=== PATIENT | female | born 1970 | race Caucasian/White ===

== ENCOUNTER 2020-09-29 19:45 | Emergency (ER) | payer SELFPAY ==
[2020-09-29 20:02] VITALS: BP 133/89; PULSE 78; RESP 18; TEMP 36.8; O2SAT 99; BMI 23.0
--- NOTE | 2020-09-29 20:09 | CTR_ITS ---
PROCEDURE INFORMATION: Exam: CT Abdomen And Pelvis With Contrast Exam date and time: 09/29/2020 8:32 PM Age: 50 years old Clinical indication: Abdominal pain; Localized; Right lower quadrant (rlq); Patient HX: C/O rlq pain w n/v TECHNIQUE: Imaging protocol: Computed tomography of the abdomen and pelvis with intravenous contrast. Radiation optimization: All CT scans at this facility use at least one of these dose optimization techniques: automated exposure control; mA and/or kV adjustment per patient size (includes targeted exams where dose is matched to clinical indication); or iterative reconstruction. Contrast material: OMNI 300; Contrast volume: 95 ml; Contrast route: INTRAVENOUS (IV); COMPARISON: CT Abdomen/Pelvis Renal 14144 11/09/2014 10:36 PM RADIATION DOSE METRICS: Total DLP (mGy-cm): 548.52 FINDINGS: Liver: Multiple hepatic cysts at least one of which measures larger than 1.0 cm in size. Other low-attenuation lesions in the liver are too small to characterize. Gallbladder and bile ducts: Normal. No calcified stones. No ductal dilation. Pancreas: Normal. No ductal dilation. Spleen: Normal. No splenomegaly. Adrenal glands: Normal. No mass. Kidneys and ureters: Multiple right renal simple cysts with the largest measuring > 1.0 cm . Stomach and bowel: Unremarkable. No obstruction. No mucosal thickening. Appendix: Normal appendix. Intraperitoneal space: Unremarkable. No free air. No significant fluid collection. Vasculature: Calcification of the abdominal aorta and/or iliac arteries consistent with atherosclerotic vessel disease. One or more calcified pelvic phleboliths. Lymph nodes: Unremarkable. No enlarged lymph nodes. Urinary bladder: Unremarkable as visualized. Reproductive: Interval appearance of 6.8 cm left ovarian cyst behind the left uterus which could represent simple cyst. Correlation with ultrasound is recommended. Interval enlargement of 11.3 x 9.2 x 7.9 cm right ovarian cystic lesion which previously measured 8.7 x 8.7 x 7.8 cm. Possible ovarian neoplasm. Bones/joints: Unremarkable. No acute fracture. Soft tissues: Unremarkable. CT/CT abdomen pelvis w con* [id number] IMPRESSION: 1. Normal appendix. 2. Interval appearance of 6.8 cm left ovarian cyst behind the left uterus which could represent simple cyst. Correlation with ultrasound is recommended. 3. Interval enlargement of 11.3 x 9.2 x 7.9 cm right ovarian cystic lesion which previously measured 8.7 x 8.7 x 7.8 cm. Possible ovarian neoplasm. COMMENTS: Consistent with the [employer]'s Incidental Findings Committee white paper (J Am Sarah Radiol 2018): Any incidental renal lesion less than 1 cm or classified as too small to characterize, or any incidental cystic renal lesion characterized as simple-appearing, is likely benign. No follow-up imaging is recommended for these lesions per consensus recommendations based on imaging criteria. Radiation Dose CTDIVOL = (mGy): DLP = 548.52 (mGy-cm)
--- NOTE | 2020-09-29 20:11 | ED_ITS ---
HPI - Abdominal Pain General: Chief Complaint: Abdominal Pain Stated Complaint: lower abdominal/suspects appendix Time Seen by Provider: 09/29/20 20:09 Source: patient Mode of arrival: ambulatory Limitations: no limitations History of Present Illness: HPI narrative: 50-year-old female comes in with right lower quadrant pain radiating into the right flank starting about 3 hours ago. Patient reports nausea and vomiting with it. Patient does have a history of renal stone. Patient appears mildly unwell. Patient appears in moderate to severe pain. Patient reports some chills. Patient denies any fever. Associated Symptoms: Reports nausea and vomiting Review of Systems General: Reports: 10 or more systems reviewed and unremarkable except in HPI and below GI: Reports: abdominal pain, nausea and vomiting Physical Exam Const: COMMON NORMALS: no acute distress and patient oriented x3 GENERAL APPEARANCE: cooperative HENMT: COMMON NORMALS: normocephalic and Normal external nose present HEAD & SCALP: normal to inspection and normocephalic NOSE: Normal external nose present MOUTH: Normal oral and palatal mucosa present Eye: GENERAL EYE: appearance normal, both eyes and all related structures Neck/C-Spine: COMMON NORMALS: full ROM Lymph: LYMPHATIC: no lymphadenopathy noted Chest: COMMONS NORMALS: normal inspection of the chest Resp: COMMON NORMALS: normal respiratory effort EFFORT & INSPECTION: Yes able to speak in complete sentences Cardio: COMMON NORMALS: regular rate and regular rhythm RATE: regular rate RHYTHM: regular rhythm GI: COMMON NORMALS: Soft to palpation AUSCULTATION: Yes normoactive bowel sounds PALPATION: Yes Soft to palpation and Yes Tenderness to palpation present (GI) Details: RLQ : BLADDER/KIDNEY EXAM: Yes CVA tenderness on the right Back/Pelvis: COMMON NORMALS: thoracic and lumbar spine normal to inspection Extremity: COMMON NORMALS: normal to inspection Neuro: COMMON NORMALS: patient oriented x3 and moves all extremities Psych: COMMON NORMALS: mental status grossly normal and cooperative Skin: COMMON NORMALS: no rashes or lesions noted GENERAL SKIN EXAM: no rashes or lesions noted Course Vital Signs: Vital signs: Vital Signs Temperature 98.2 F 09/29/20 20:02 Pulse Rate 72 09/29/20 21:02 Respiratory Rate 18 09/29/20 21:02 Blood Pressure 133/89 09/29/20 20:02 Pulse Oximetry 96 09/29/20 21:02 MDM - Abdominal Pain MDM Narrative: Medical decision making narrative: Patient comes in with right lower abdominal pain and discomfort. Patient was concerned that the may be having appendicitis. Patient has had a previous history of renal stone. On exam patient had some right CVA tenderness. Abdomen was tenderness to the right side. Vital signs were normal. Differential diagnosis includes appendicitis, renal calculi, ovarian cyst, colitis. CT scan noted no appendicitis. CT scan did note an abnormal ovarian cyst on the right side that has grown since 2014. I reviewed this with patient with recommendations for follow-up with [facility]. Patient reported understanding Case management was consulted for assistance with referral. Urinalysis showed blood and white blood cells will treat for urinary tract infection. Patient was encouraged drink plenty of water and fluids and r eturn to ER as needed. Lab Data: Labs: Lab Results 09/29/20 09/29/20 09/29/20 Range/Units 20:25 20:33 20:33 WBC 10.2 H (4.0-10.0) 10^3/ uL RBC 4.65 (4.1-5.3) 10^6/u L Hgb 14.4 (11.5-15.3) g/dL Hct 42.3 (37.0-47.0) % MCV 91.0 (81-99) fL MCH 31.0 (28.0-34.0) pg MCHC 34.0 (30.0-36.0) g/dL RDW 12.8 (12.1-15.1) % Plt Count 245 (130-400) 10^3/c mm MPV 10.3 (7.4-10.4) fL Neut % (Auto) 87.5 % Lymph % (Auto) 10.1 % [place] % (Auto) 1.6 % Eos % (Auto) 0.0 % Baso % (Auto) 0.5 % Neut # (Auto) 8.97 H (1.8-7.7) 10^3/u L Lymph # (Auto) 1.0 (0.8-4.8) 10^3/u L [place] # (Auto) 0.2 (0.2-0.9) 10^3/u L Eos # (Auto) 0.0 (0.0-0.8) 10^3/u L Baso # (Auto) 0.1 (0.0-0.1) 10^3/u L Nucleated RBC % (a uto) 0 % Nucleated RBCs # 0.0 /100WBC Sodium 135 L (136-145) mmol/L Potassium 4.2 (3.5-5.1) mmol/L Chloride 99 (98-107) mmol/L Carbon Dioxide 23 (22-29) mmol/L Anion Gap 17.2 (5-19) BUN 11 (6-20) mg/dL Creatinine 0.9 (0.5-0.9) mg/dL GFR Calculation 65.8 L (90-130) mL/min Glucose 151 H (65-115) mg/dL Calculated Osmolal ity 282 L (285-295) mOsm/k g Calcium 9.6 (8.5-10.5) mg/dL Total Bilirubin 0.5 (0.15-1.2) mg/dL AST 16 (0-32) U/L ALT 13 (0-33) U/L Alkaline Phosphata se 83 (35-105) IU/L Total Protein 7.3 (6.6-8.7) g/dL Albumin 4.6 (3.5-5.2) g/dL Globulin 2.7 (1.3-4.6) g/dL Lipase 19 (13-60) U/L HCG, Qual (Negative) Urine Color Yellow (Yellow) Urine Appearance Clear (CLEAR) Urine pH 7 (5-7) Ur Specific Gravit y 1.010 (1.005-1.030) Urine Protein Neg (Negative) Urine Glucose (UA) Norm (Normal) Urine Ketones 1+ H (Negative) Urine Blood 2+ H (Negative) Urine Nitrate Negative (Negative) Urine Bilirubin Neg (Negative) Urine Urobilinogen Norm (Negative) mg/dL Ur Leukocyte Nettie ase Negative (Negative) Urine RBC 15-25 H (0-2) /hpf Urine WBC 5-10 H (0-5) /hpf Ur Squamous Epith Cells 5-10 H (0-5) /hpf Amorphous Sediment Not Reportable Urine Bacteria Trace (NONE) /hpf Urine Mucus 4+ /hpf 11/14/20 Range/Units 20:33 WBC (4.0-10.0) 10^3/ uL RBC (4.1-5.3) 10^6/u L Hgb (11.5-15.3) g/dL Hct (37.0-47.0) % MCV (81-99) fL MCH (28.0-34.0) pg MCHC (30.0-36.0) g/dL RDW (12.1-15.1) % Plt Count (130-400) 10^3/c mm MPV (7.4-10.4) fL Neut % (Auto) % Lymph % (Auto) % [place] % (Auto) % Eos % (Auto) % Baso % (Auto) % Neut # (Auto) (1.8-7.7) 10^3/u L Lymph # (Auto) (0.8-4.8) 10^3/u L [place] # (Auto) (0.2-0.9) 10^3/u L Eos # (Auto) (0.0-0.8) 10^3/u L Baso # (Auto) (0.0-0.1) 10^3/u L Nucleated RBC % (a uto) % Nucleated RBCs # /100WBC Sodium (136-145) mmol/L Potassium (3.5-5.1) mmol/L Chloride (98-107) mmol/L Carbon Dioxide (22-29) mmol/L Anion Gap (5-19) BUN (6-20) mg/dL Creatinine (0.5-0.9) mg/dL GFR Calculation (90-130) mL/min Glucose (65-115) mg/dL Calculated Osmolal ity (285-295) mOsm/k g Calcium (8.5-10.5) mg/dL Total Bilirubin (0.15-1.2) mg/dL AST (0-32) U/L ALT (0-33) U/L Alkaline Phosphata se (35-105) IU/L Total Protein (6.6-8.7) g/dL Albumin (3.5-5.2) g/dL Globulin (1.3-4.6) g/dL Lipase (13-60) U/L HCG, Qual Negative (Negative) Urine Color (Yellow) Urine Appearance (CLEAR) Urine pH (5-7) Ur Specific Gravit y (1.005-1.030) Urine Protein (Negative) Urine Glucose (UA) (Normal) Urine Ketones (Negative) Urine Blood (Negative) Urine Nitrate (Negative) Urine Bilirubin (Negative) Urine Urobilinogen (Negative) mg/dL Ur Leukocyte Nettie ase (Negative) Urine RBC (0-2) /hpf Urine WBC (0-5) /hpf Ur Squamous Epith Cells (0-5) /hpf Amorphous Sediment Urine Bacteria (NONE) /hpf Urine Mucus /hpf Discharge Plan Discharge Patient Disposition: Home Clinical Impression: UTI (urinary tract infection) due to Enterococcus, Abnormal CT scan, pelvis Condition: Stable Prescriptions: New Bactrim DS 800-160 mg tablet 1 tab PO BID Qty: 7 RF: 0 phenazopyridine 100 mg tablet 100 mg PO Q8H Qty: 6 RF: 0 Discharge Orders: Discharge Order (Routine); Ordered 09/29/20 Ordered By: Brandon Ramírez Referrals: Mendez Bennett FNP [Primary Care Provider] - Discharge Diet: Usual diet Discharge Activity: Increase activity as tolerated Patient Instructions: Abdominal Pain (ED) Activity Restrictions/Additional Instructions: Follow-up with primary care. Follow-up with [facility] for further evaluation of abnormal CT scan. The CT scan may indicate a cancer on the right ovary. It is important to have this further evaluated to rule cancer out. Return to the emergency department for worsening pain, high fever, or new concerns. Case management has been consulted to help assist with [facility] follow-up. Coding Level of Care Code ED Oral And Maxillofacial Surgery for Chidi Duong Exam Comprehensive
[2020-09-29 20:41] LABS: Basophils # 0.1 10^3/uL (0.0-0.1); Basophils % 0.5 %; Hematocrit 42.3 % (37.0-47.0); Hemoglobin 14.4 g/dL (11.5-15.3); Lymphocytes % 10.1 %; Mean Platelet Volume 10.3 fL (7.4-10.4); Monocytes # 0.2 10^3/uL (0.2-0.9); Monocytes % 1.6 %; Neutrophils # 8.97 10^3/uL (1.8-7.7); Neutrophils % 87.5 %; Nucleated Red Blood Cells % 0 %; Platelet Count 245 10^3/cmm (130-400); Red Blood Count 4.65 10^6/uL (4.1-5.3); Red Cell Distribution Width 12.8 % (12.1-15.1); White Blood Count 10.2 10^3/uL (4.0-10.0)
[2020-09-29] MEDS: sodium chloride 0.9% 500 ML 999 ML IV (20:44)
[2020-09-29] MEDS: ondansetron 2 mg/ML SDV 2 mL 4 MG IVP (20:44)
[2020-09-29] MEDS: ketorolac 30 mg/mL INJ 15 MG IVP (20:45)
[2020-09-29 20:46] VITALS: RESP 18; O2SAT 99
[2020-09-29] MEDS: fentaNYL 50 mcg/mL INJ 2mL 25 MCG IVP (20:46)
[2020-09-29] MEDS: iohexol 300 mg/mL 100 mL Btl IV (20:52)
[2020-09-29 20:57] LABS: HCG, Serum Qual Negative (Negative)
[2020-09-29 20:58] LABS: Urine Appearance Clear (CLEAR); Urine Color Yellow (Yellow); pH Urine 7 (5-7)
[2020-09-29 20:59] LABS: Add Urine Microscopic? YES; Bilirubin Urine Neg (Negative); Blood Urine 2+ (Negative); Glucose Urine UA Norm (Normal); Ketones Urine 1+ (Negative); Leukocyte Esterase Urine Negative (Negative); Nitrate Urine Negative (Negative); Protein Urine Neg (Negative); Urobilinogen Urine Norm (Negative)
[2020-09-29 21:02] VITALS: PULSE 72; RESP 18; O2SAT 96
[2020-09-29 21:02] LABS: Alanine Aminotransferase 13 U/L (0-33); Albumin Level 4.6 g/dL (3.5-5.2); Alkaline Phosphatase 83 IU/L (35-105); Blood Urea Nitrogen 11 mg/dL (6-20); Calcium 9.6 mg/dL (8.5-10.5); Carbon Dioxide 23 mmol/L (22-29); Chloride 99 mmol/L (98-107); Globulin 2.7 g/dL (1.3-4.6); Glomerular Filtration Rate 65.8 mL/min (90-130); Glucose 151 mg/dL (65-115); Lipase 19 U/L (13-60); Osmolality Calculated 282 mOsm/kg (285-295); Sodium 135 mmol/L (136-145); Total Bilirubin 0.5 mg/dL (0.15-1.2); Total Protein 7.3 g/dL (6.6-8.7)
[2020-09-29 21:04] LABS: Add Urine Culture? Yes; Bacteria Urine TRACE /hpf; RBC Urine 15-25 /hpf (0-2)
[2020-09-29 21:08] LABS: Mucus Urine 4+ /hpf
[2020-09-29 21:11] LABS: Anion Gap 17.2 (5-19); Aspartate Amino Transferase 16 U/L (0-32); Potassium 4.2 mmol/L (3.5-5.1)
[2020-09-29] MEDS: sulfamethoxazole-trimeth DS 160-800 mg Tablet 1 TAB PO (21:38)
[2020-09-29 21:42] VITALS: PULSE 88; RESP 18; O2SAT 99
--- NOTE | 2020-10-01 11:30 | DCPLANNER ---
ag service manager had message to schedule a follow up appointment for patient with [facility]. ag service manager called [facility], spoke with [place], gave clinic patients information. ag service manager was told that patients information would be printed and reviewed. Clinic will call patient with appointment information.
--- NOTE | 2020-10-03 13:17 | DCPLANNER ---
Patient has a follow up appointment scheduled for Monday, October 19, 2020 at 1:[address] Delgado. Clinic will call patient with appointment information.
--- NOTE | 2020-10-26 15:06 | DCPLANNER ---
Patient had a follow up appointment scheduled for 10.19.20 with [facility] - patient did attend appointment.
== END 2020-09-29 21:43 | disposition home or self-care (01) ==
PROVIDERS: Emergency Provider Nurse Practitioner Family; PCP Nurse Practitioner
DX: N39.0 Urinary tract infection, site not specified (principal); B95.2 Enterococcus as the cause of diseases classified elsewhere; R93.5 Abnormal findings on diagnostic imaging of other abdominal regions, including retroperitoneum
CPT/HCPCS: 12345; 74177; 80053; 81001; 83690; 84703; 85025; 87086; 96374; 96375; 99283; J1885; J2405; J3010; J7040; Q9967

== ENCOUNTER → 2020-10-08 10:37 | Outpatient (BNVA) | payer SELFPAY | PROVIDERS: PCP Nurse Practitioner; Visit Provider Obstetrics & Gynecology | DX: N83.201 Unspecified ovarian cyst, right side (principal) | CPT/HCPCS: 76856 ==

== ENCOUNTER → 2020-11-22 11:00 | Outpatient (BNVA) | payer MEDICAID, SELFPAY | PROVIDERS: PCP Nurse Practitioner; Visit Provider Obstetrics & Gynecology | DX: Z12.4 Encounter for screening for malignant neoplasm of cervix (principal) | CPT/HCPCS: 88175 ==

== ENCOUNTER → 2020-11-28 10:35 | Outpatient (BNVA) | payer MEDICAID, SELFPAY | PROVIDERS: Visit Provider Obstetrics & Gynecology | DX: Z01.812 Encounter for preprocedural laboratory examination (principal); Z20.828 Contact with and (suspected) exposure to other viral communicable diseases | CPT/HCPCS: 85025; 87635 ==

== ENCOUNTER 2020-12-04 07:47 | Day surgery (SDC) | payer MEDICAID, SELFPAY ==
[2020-11-28 09:36] VITALS: BMI 26.2
[2020-11-28 10:11] LABS: Basophils # 0.1 10^3/uL (0.0-0.1); Basophils % 0.9 %; Eosinophils # 0.1 10^3/uL (0.0-0.8); Eosinophils % 1.3 %; Hematocrit 42.4 % (37.0-47.0); Hemoglobin 14.1 g/dL (11.5-15.3); Lymphocytes # 1.8 10^3/uL (0.8-4.8); Lymphocytes % 33.1 %; Mean Corpuscular HGB Conc 33.3 g/dL (30.0-36.0); Mean Corpuscular Hemoglobin 30.9 pg (28.0-34.0); Mean Platelet Volume 10.1 fL (7.4-10.4); Monocytes # 0.3 10^3/uL (0.2-0.9); Monocytes % 6.3 %; Neutrophils # 3.11 10^3/uL (1.8-7.7); Nucleated Red Blood Cells % 0 %; Platelet Count 243 10^3/cmm (130-400); Red Blood Count 4.56 10^6/uL (4.1-5.3); Red Cell Distribution Width 13.3 % (12.1-15.1); White Blood Count 5.4 10^3/uL (4.0-10.0)
--- NOTE | 2020-11-28 12:03 | ANES.PREANE2 ---
Pre-Anesthetic Assessment Pre-Anesthetic Assessment: Height/Weight: Height 1.6 m Weight 67.132 kg Preop Diagnosis: Ovarian cyst, Vulvar mass Proposed Procedure: Operation Date: 12/04/20 08:30 Proposed Procedures p Laparoscopic Salpingo Oophorectomy, poss laparotomy 97991 [id number] N83.201(Not Applicable) - Oscar Delgado MD s Excision of labial mass(Not Applicable) - Oscar Delgado MD Was Beta Suzanne taken within 24 hours: N/A Social: Social History: Tobacco and No alcohol Exam: Pre-Anes Outpt Exam: alert, oriented x 3 and regular rate & rhythm Additional Exam Findings (including area of procedure): Rhonchi Airway: Submandibular: WNL Cervical ROM: WNL MP: 2 Dentition: Full Pulmonary: Pulmonary: COPD CV/HEM: CV/HEM: None reported : : None reported Hepatic: Hepatic: None reported GI: GI: None reported Metabolic: Metabolic: None reported Musc/skel: Musc/skel: None reported Neuropsych: Neuropsych: None reported Anesthetic Plan: ASA status: 2 Anesthesia: General Risk of > 500 ml blood loss (7ml/kg in children): No PFSH Anesthesia PFSH: Medical History Kidney stones (~2013) Passed on own. Surgical History S/P dilation and curettage (~1997) Family History Father Diabetes Stroke Myocardial infarction Social History (Updated 11/24/20 @ 16:10 by Oscar Delgado MD) Smoking and tobacco status: current every day smoker cigarettes Packs smoked per day: 1 [ Other cigarette details: Started age 13 ] Alcohol intake: current Alcohol intake frequency: holidays/special occasions only Substance/Drug Use: never Data Anesthesia CBC & Chem 7: 11/28/20 09:45 Other Labs: Laboratory Results - last 48 hr 11/28/20 09:45 WBC 5.4 RBC 4.56 Hgb 14.1 Hct 42.4 MCV 93.0 MCH 30.9 MCHC 33.3 RDW 13.3 Plt Count 243 MPV 10.1 Neut % (Auto) 58.0 Lymph % (Auto) 33.1 [place] % (Auto) 6.3 Eos % (Auto) 1.3 Baso % (Auto) 0.9 Neut # (Auto) 3.11 Lymph # (Auto) 1.8 [place] # (Auto) 0.3 Eos # (Auto) 0.1 Baso # (Auto) 0.1 Nucleated RBC % (auto) 0 Nucleated RBCs # 0.0 Cardiac Studies: No Data to Display
[2020-12-04] VITALS (10 sets, daily range): BP systolic 96–152; BP diastolic 68–95; PULSE 59–94; RESP 12–18; TEMP 36.6–36.8; O2SAT 97–100
[2020-12-04] MEDS: sodium chloride 0.9% 1,000 ML 30 ML IV (08:43)
[2020-12-04] MEDS: gabapentin 300 mg Capsule PO (08:54)
[2020-12-04] MEDS: ketorolac 30 mg/mL INJ IVP (08:59)
--- NOTE | 2020-12-04 10:33 | W.PM.OPSUD ---
Surgery/Procedure H&P Update DATE OF PROCEDURE: December 04, 2020 DATE H&P PERFORMED: 11/22/20 H&P UPDATE INFORMATION: I have reviewed H&P completed within last 30 days, I have examined patient prior to procedure, No changes to prior documentation and H&P is in [facility] on date indicated PREOP DIAGNOSIS: Ovarian cyst, Vulvar mass PLANNED PROCEDURE: Operation Date: 12/04/20 09:25 Proposed Procedures p Laparoscopic Salpingo Oophorectomy, poss laparotomy 19507 [id number] N83.201(Not Applicable) - Oscar Delgado MD s Excision of labial mass(Not Applicable) - Oscar Delgado MD
[2020-12-04] MEDS: neomycin-poly-bacitracin oint 28 gm 1 APPLIC TOPICAL (12:16)
--- NOTE | 2020-12-04 13:03 | PM.OP ---
Operative Report Date of procedure: December 04, 2020 Pre-op Diagnosis: Ovarian cyst, Vulvar mass Post-op Diagnosis: Bilateral ovarian neoplasms, Vulvar mass Procedure Done: Laparoscopic bilateral salpingo-oophorectomy, Excision of of right labial mass (4 x 3.5 cm) with intermediate closure of the defect. Specimens removed/disposition: Bilateral tubes and ovaries, Right labial mass Surgeon: Oscar Delgado Hydrotel Operator: None Anesthesia: General Estimated blood loss (mL): 20 IV fluids (mL): 1,000 Urine output (mL): 100 Complications: None Findings: Large bilateral ovarian cyst (right ovary was approximately 440 mL volume and left ovary was approximately 146 mL volume). Small uterus. Right labial mass, warty appearing, measuring 4.0 x 3.5 cm. Brief History: Patient is a 50-year-old female 7, para 7 who is postmenopausal. She presented to the office as a referral from the ER due to bilateral ovarian cyst. While being evaluated in the ER for right lower quadrant pain, she was found to have 2 large cysts. On further review of records these have been present since 2013, but had slowly enlarged. The right ovarian cyst was measuring 11.1 x 11.8 x 6.7 cm and the left ovarian cyst was measuring 6.7 x 6.4 x 6.9 cm. These were both simple in appearance. 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 Recommendations, however, were for them to be removed and she is presenting for that. In addition, she reported that she had a large labial mass that have been slowly enlarging over several years. On evaluation this appeared to be a very large wart which was approximately 4 cm in diameter. Removal of this was also discussed and she is presenting for both of these procedures at this time. Procedure: The patient was taken to the operating room where general anesthesia was obtained. She was prepped and draped in the usual sterile fashion in the dorsal supine position with legs in Gal style stirrups. Sequential compression boots were placed prior to starting the case. Bladder was drained and exam under anesthesia was performed. She was found to have first to second-degree uterine prolapse. Weighted speculum was placed in the vagina and the cervix. Attempted to pass a ZUMI, which was unsuccessful. As a result I attempted to dilate the cervix and was unable to pass any the dilators beyond approximately 4 cm in length. As a result decision was made not to place the ZUMI. A sponge stick was left in the vagina and secured to the tenaculum. The infraumbilical region was injected with 2% lidocaine with epinephrine. Skin incision was made with a knife in the lower edge of the navel and a size 10 trocar and sheath were inserted under direct visualization using an Optiview type technique. Trocar was removed and replaced with just the laparoscope confirming intra-abdominal placement. The anterior abdominal wall was inspected and noted to be free of adhesions. In the right and left lower quadrants lateral to the inferior epigastric vessels, the skin was injected with 2% lidocaine with epinephrine. Skin incision was made with the knife and a 5 mm trocar and sheath were inserted under direct visualization at each site. On inspection of the pelvis, a large cystic mass was found to be sitting in the midportion of the pelvis anterior to the uterus. This was found to be arising from the right adnexal region. The rest of the pelvic organs were not able to be visualized due to the size of the mass. The right infundibulopelvic ligament was able to be visualized. Using the Voyant sealing device, the infundibulopelvic ligament was sealed and cut and the dissection carried along the lateral aspect of the ovary and tube until the corner of the uterus was reached. This pedicle was also then cut completely freeing the ovary and tube from the uterus and the sidewall. The ovary was too large to put into a pouch and as a result the fluid from the cyst was aspirated using an aspiration needle. Approximately 440 mL of fluid was drained from the ovary. The ovary was then placed in the laparoscopic pouch and brought out through the abdominal wall. The rest the pelvis was unable to be visualized. Patient was noted to have a very small slightly retroflexed uterus. Posterior to the uterus, patient had an enlarged cystic left ovary noted. Using the Voyant sealing device, the infundibulopelvic ligament was sealed and cut and the dissection carried along the mesovarium mesosalpinx until the ovary and tube were completely freed. The ovary was placed in a laparoscopic pouch and then drained using aspiration needle. It was then brought out through the laparoscopic site. The dissection areas were inspected and noted to be hemostatic. The abdomen was deflated and the ports removed. The fascia at the umbilical incision was closed using 0 Vicryl suture in an interrupted fashion. The skin was reapproximated using 4-0 Vicryl suture in a subcuticular fashion. The 5 mm sites were closed with single stitches of 4-0 Vicryl suture. Skin glue was applied. The skin of the right labia was injected with 2% lidocaine with epinephrine under the mass and extending above and below this. An elliptical incision was made with a knife in the labia through the full-thickness of the skin. This was then excised using a knife until the mass with the full-thickness of the skin was removed. Areas of bleeding were cauterized with electrocautery. The skin was loose enough in the area that it was felt that no skin flaps would be required for primary closure. To reapproximate the defect, 2 separate layers of interrupted stitching using 2-0 Vicryl suture were placed in the subcutaneous tissue to reduce the width of the defect. Once this was completed, skin edges reapproximated well and as a result was closed with 4-0 Vicryl suture in a simple running fashion. This allowed tension-free closure of the defect. The overall length of the excised area was 8 cm with the overallwidth being 4-1/2 cm. Triple antibiotic was applied to the labial incision. Patient tolerated the procedures well. Sponge and needle counts were correct. DRAINS: None POSTOPERATIVE STATUS: The patient was transferred to the recovery room in satisfactory condition. DISPOSITION: Patient was to be discharged home when criteria was met. FOLLOWUP APPOINTMENT: Patient was to followup in my office in 1 and 2 weeks following surgery. PRESCRIPTIONS: She received prescriptions for: [place] 5/325, 1 to 2 tablets every 6 hours as needed for pain, #30, 0 refills Ibuprofen 800 mg, 1 tablet 3 times a day as needed for pain, #30, 0
--- NOTE | 2020-12-04 14:11 | ANE.PACU2 ---
Inpatient post-anesthesia follow up: Airway intact: Yes Vital signs: Temperature 97.9 F Pulse Rate 76 Respiratory Rate 18 Blood Pressure 134/80 Pulse Oximetry 98 Oxygen Delivery Me thod Room Air Oxygen Flow Rate 6 Fraction of Inspir ed Oxygen Hydration adequate: Yes Nausea and vomiting: No Pain level: 2 Mental status: Baseline
== END 2020-12-04 14:11 | disposition home or self-care (01) ==
PROVIDERS: Visit Provider Obstetrics & Gynecology
PROC: (CPT 58661; principal; 2020-12-04 09:25)
PROC: (CPT 11424; 2020-12-04 09:25)
DX: N83.202 Unspecified ovarian cyst, left side (principal); N83.201 Unspecified ovarian cyst, right side; A63.0 Anogenital (venereal) warts; N95.9 Unspecified menopausal and perimenopausal disorder; J44.9 Chronic obstructive pulmonary disease, unspecified; F17.210 Nicotine dependence, cigarettes, uncomplicated
CPT/HCPCS: 11424; 58661; 12345; 36415; 86850; 86900; 88305; 96365; 96374; J0131; J1885; J2370; J2405; J2704; J3010; J3490; J7030

== ENCOUNTER 2022-03-25 12:26 | Emergency (ER) | payer MEDICAID, SELFPAY ==
[2022-03-25 12:41] VITALS: BP 161/89; PULSE 67; RESP 14; TEMP 36.4; O2SAT 98
--- NOTE | 2022-03-25 13:07 | W.ED.EYEPROB ---
HPI - Eye Problem General: Chief complaint: Eye Problems Stated complaint: FB in left eye Time Seen by Provider: 03/25/22 12:32 Source: patient Mode of arrival: ambulatory Limitations: no limitations History of Present Illness: Patient is with a 2-year-old female presents to ED today with a complaint of a left eye injury. Patient states yesterday she was cleaning out her chicken coop when a piece of the poultry netting struck her in the left eye. Patient states she irrigated the eye extensively following the incident. She has continued to feel a foreign body sensation to her eye thus prompting her visit today. She states her eye is red and irritated. Patient states her vision has been slightly blurry but she denies any vision loss. chief complaint: eye redness, eye injury and foreign body Onset (ago): day(s) (yesterday) Onset description: sudden Duration: constant Location: left eye Eye Symptoms: redness and foreign body sensation Place: home Mechanism: direct trauma Severity: moderate Associated symptoms: Reports no associated symptoms Treatments Prior to Arrival: irrigated eye Related Data: Patient tetanus UTD: Yes Review of Systems Eyes: Reports: blurry vision, eye discomfort and eye redness; Denies: blind spots, photophobia, eye discharge, floaters or seeing flashes PFS ED PFSH: Medical History Kidney stones (~2013) Passed on own. 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 Surgical History S/P bilateral salpingo-oophorectomy (12/04/20) Laparoscopic BSO, excision of right labial mass (4 x 3.5 cm) with intermediate closure of the defect. Performed by Dr. Delgado at [facility] [place] in [place], [place]. S/P dilation and curettage (~1997) Family History Father Diabetes Stroke Myocardial infarction Social History Smoking and tobacco status: current every day smoker cigarettes Packs smoked per day: 1 [ Other cigarette details: Started age 13] Alcohol intake: current Alcohol intake frequency: holidays/special occasions only Physical Exam Const: COMMON NORMALS: no acute distress, patient oriented x3, no limitations, alert and well nourished Eye: COMMON NORMALS: Equal, round and reactive pupils present, EOMs intact bilaterally, normal visual garcia by confrontation and fundi normal bilaterally GENERAL EYE: normal light reflex VISUAL ACUITY: Yes acuity normal VISUAL GARCIA: No peripheral vision loss and No central vision loss ALIGNMENT: Yes alignment normal PERIORBITAL: periorbital findings normal EYELID: eyelids normal CONJUNCTIVA: Yes conjunctival abnormal (L eye injection) SCLERA: sclerae normal CORNEA: Yes fluorescein used (abrasion to L mid cornea) PUPIL: Yes Equal, round and reactive pupils present DIRECT OPHTHALMOSCOPY: Yes normal light reflex and Yes fundi normal bilaterally OTHER: pt has no hyphema, negative Rocky sign, no corneal laceration noted, no evidence for globe rupture/injury EYE IMAGES: 1. small corneal abrasion noted Neuro: COMMON NORMALS: patient oriented x3 SENSORIUM/ORIENTATION: Yes alert Course Vital Signs: Vital signs: Vital Signs Temperature 97.6 F 03/25/22 12:41 Pulse Rate 67 03/25/22 12:41 Respiratory Rate 14 03/25/22 12:41 Blood Pressure 161/89 03/25/22 12:41 Pulse Oximetry 98 03/25/22 12:41 [facility] [place] - Eye Problem Medical Decision Making Patient with a left corneal abrasion. Will be treated with erythromycin ointment. Tetanus is up-to-date. Strict return to ED precautions given. Discharge Plan Discharge Patient Disposition: Home Clinical Impression: Abrasion of left cornea Qualifiers: Encounter type: initial encounter Qualified Code(s): S05.02XA - Injury of conjunctiva and corneal abrasion without foreign body, left eye, initial encounter Condition: Stable Prescriptions: New erythromycin 5 mg/gram (0.5 %) ointment 1 applic ophthalmic (eye) Q4H 7 Days Qty: 1 0RF No Action hydrocodone-acetaminophen 5-325 mg Tablet 1 - 2 tab PO Q6H PRN (Reason: Moderate To Severe Pain) Qty: 30 0RF ibuprofen 800 mg tablet 800 mg PO TID PRN (Reason: pain) Qty: 30 0RF Discharge Orders: Discharge ED (Routine); Ordered 03/25/22 Ordered By: Francheska Garay Patient Instructions: Corneal Abrasion (DC) Coding Level of Care Code ED Kidney Puller for Chidi Duong
[2022-03-25] MEDS: eye irrigation 30 mL Btl EYE-LEFT (13:32)
[2022-03-25] MEDS: tetracaine 0.5% Op Soln 4 mL Btl 1 DROP EYE-LEFT (13:32)
[2022-03-25] MEDS: fluorescein 1 mg Strip EYE-LEFT (13:32)
[2022-03-25] MEDS: erythromycin Op Oint 1 gm 1 APPLIC EYE-LEFT (14:00)
== END 2022-03-25 14:03 | disposition home or self-care (01) ==
PROVIDERS: Emergency Provider Physician Assistant
DX: S05.02XA Injury of conjunctiva and corneal abrasion without foreign body, left eye, initial encounter (principal); W22.8XXA Striking against or struck by other objects, initial encounter; F17.210 Nicotine dependence, cigarettes, uncomplicated
CPT/HCPCS: 99283